=== PATIENT | female | born 1995 | race Caucasian/White ===

== ENCOUNTER 2022-07-16 19:51 | Emergency (ER) | payer BC ==
[~2022-07-16] VITALS: Ht 170.2 cm; Wt 61.2 kg
[2022-07-16 20:20] VITALS: BP 114/68
[2022-07-16] MEDS ORDERED: SULF-59 PO (21:39)
[2022-07-16] MEDS ORDERED: IBUP-2213 PO (21:40)
[2022-07-16 21:51] VITALS: BP 110/62
--- NOTE | 2022-07-16 21:51 | NUR ---
Patient discharged with v/s stable. Written and verbal after care instructions given and explained. Patient alert, oriented and verbalized understanding of instructions. Ambulatory with steady gait. All questions addressed prior to discharge. ID band removed. Patient advised to follow up with PMD. Rx of MOTRIN, BACTRIM given. Patient educated on indication of medication including possible reaction and side effects. Opportunity to ask questions provided and answered.
--- NOTE | 2022-07-16 21:51 | NUR ---
FIRST CONTACT WITH PT. SEE ASSESSMENT. PT A&OX4, RR EVEN AND UNLABORED. NO S/S OF DISTRESS NOTED.
== END 2022-07-16 21:51 | disposition home or self-care (01) ==
LOC: MED 19:51
DX: S90.812A Abrasion, left foot, initial encounter (principal); L03.116 Cellulitis of left lower limb; Z79.1 Long term (current) use of non-steroidal anti-inflammatories (NSAID); Z79.2 Long term (current) use of antibiotics; Z88.0 Allergy status to penicillin; Z88.1 Allergy status to other antibiotic agents; X58.XXXA Exposure to other specified factors, initial encounter; Y92.89 Other specified places as the place of occurrence of the external cause; Y93.89 Activity, other specified; Y99.8 Other external cause status
CPT/HCPCS: 73630; 99283